=== PATIENT | female | born 1995 | race Caucasian/White ===

== ENCOUNTER 2021-02-13 10:01 | Outpatient (CLI) | payer OTHER, SELFPAY ==
--- NOTE | ~2021-02-13 | US_ITS ---
EXAMINATION: US retroperitoneal comp, US right upper quadrant DATE: 02/13/2021 10:32 INDICATION: Abdominal bloating, pain and nausea TECHNIQUE: Multiple grayscale and Doppler ultrasound images of the abdomen were obtained. COMPARISON: CT dated 12/20/2013 FINDINGS: The region of the pancreas is obscured by shadowing bowel gas. Visualized proximal inferior vena cava is normal. Liver has normal echogenicity and contour, with a smooth surface. 1.3 cm hyperechoic nodu le in the right hepatic lobe statistically most likely to represent a hemangioma. No intrahepatic marilyn iary duct dilation suspected. Portal venous flow was seen in the hepatopetal, normal direction and garber s normal Doppler waveform. The gallbladder is normal in appearance. There is no cholelithiasis. The common bile duct measures 5 mm, which is normal. Sonographic Gonzalez sign was reported as negative by the employment law attorney. There is normal renal contour and echogenicity bilaterally. The right kidney measure s 10.8 x 4.7 x 4.8 cm and the left 10.9 x 5.3 x 5.7 cm. There are no focal renal lesions identified. There is no hydronephrosis. Bladder is normal. IMPRESSION: 1. Nonspecific 1.3 cm hyperechoic nodule in the right hepatic lobe with increased echogenicity consis tent with and statistically most likely to represent a hemangioma. Otherwise unremarkable right upper quadrant ultrasound. 2. Normal bilateral kidneys with no hydronephrosis. Reviewed, dictated and finalized at location A. IMPRESSION: 1. Nonspecific 1.3 cm hyperechoic nodule in the right hepatic lobe with increas ed echogenicity consistent with and statistically most likely to represent a he mangioma. Otherwise unremarkable right upper quadrant ultrasound. 2. Normal bilateral kidneys with no hydronephrosis.
== END 2021-02-13 10:02 | disposition home or self-care (01) ==
LOC: CHSIMG 10:06
PROVIDERS: PCP Family Medicine; Visit Provider Physician Assistant
DX: R14.0 Abdominal distension (gaseous) (principal)
CPT/HCPCS: 76705; 76770

== ENCOUNTER 2021-03-12 10:23 | Outpatient (CLI) | payer OTHER, SELFPAY ==
--- NOTE | ~2021-03-12 | US_ITS ---
EXAMINATION: US pelvic complete w TV EXAM DATE: 03/12/2021 11:32 INDICATION: Abdominal pain. TECHNIQUE: Pelvic transabdominal and transvaginal sonogram was performed. There are multiple graysca le and Doppler images available for interpretation. Correlation is made to CT abdomen pelvis 4. FINDINGS: Uterus measures 7.7 x 4.5 x 5.5 cm, is anteverted and morphologically normal. Endometrial stripe measures 3 mm, within normal limits. There are nabothian cysts. There is no free pelvic flu id. Right adnexa: The ovary measures 1.8 x 0.8 x 0.8 cm and is morphologically normal. Ovarian vascular f low confirmed. Left adnexa: The ovary measures 2.7 x 1.4 x 1.5 cm and is morphologically normal. Ovarian vascular fl ow confirmed. IMPRESSION: 1. Unremarkable pelvic ultrasound exam. Reviewed, dictated and finalized at location A.
== END 2021-03-12 10:24 | disposition home or self-care (01) ==
LOC: CHSIMG 10:24
PROVIDERS: PCP Family Medicine; Visit Provider Nurse Practitioner Psychiatric/Mental Health
DX: R10.9 Unspecified abdominal pain (principal)
CPT/HCPCS: 76830; 76856

== ENCOUNTER 2022-11-06 06:58 | Emergency (ER) | payer OTHER, SELFPAY ==
--- NOTE | ~2022-11-06 | CT_ITS ---
EXAMINATION: CT abdomen pelvis wo con DATE: 11/06/2022 08:02 INDICATION: Left flank pain, pelvic pain. TECHNIQUE: Computed tomography (CT) of the abdomen and pelvis was performed without intravenous contr ast. Automated exposure control and iterative reconstruction technique were employed. Exam dose: 143 5.69 mGy-cm total exam DLP. COMPARISON: 03/12/2021 pelvic ultrasound examination, reported unremarkable 02/13/2021 right upper quadrant abdominal ultrasound 12/20/2013 CT abdomen pelvis FINDINGS: The lung bases are clear. Normal heart size. No pericardial or pleural effusion. The liver, gallbladder, bile ducts, spleen, pancreas, pancreatic duct and adrenal glands appear eladia l. There is an approximately 4.5 mm calculus at the very proximal left ureter with mild left hydronephro sis and left nephromegaly. No other urinary tract calculus or any right hydroureteronephrosis is note d. The urinary bladder, uterus and adnexal areas are unremarkable. Normal caliber of the abdominal aorta. No enlarged abdominal or pelvic lymph nodes. Normal appendix. No bowel obstruction, bowel wall thickening, pneumatosis or intraperitoneal free air . Small fat-containing umbilical hernia. Small bilateral fat-containing inguinal hernias. Included skeletal structures are unremarkable. IMPRESSION: Approximately 4.5 mm proximal left ureteral calculus Reviewed, dictated and finalized at [facility]. Reviewed, dictated and finalized at location A. SPINNER
[2022-11-06 07:00] VITALS: BP 150/90; PULSE 82; RESP 20; TEMP 36.6; O2SAT 97
[2022-11-06 07:28] LABS: Basophils Absolute Auto 0.03 K/mm3 (0.00-0.10); Basophils Percent Auto 0.3 % (0.0-1.0); Eosinophils Absolute Auto 0.54 K/mm3 (0.02-0.50); Eosinophils Percent Auto 4.6 % (1.0-6.0); Hemoglobin 12.6 g/dL (12.0-15.0); Immature Granulocyte Absolute 0.04 K/mm3 (0.00-0.00); Immature Granulocyte Percent A 0.3 % (0.0-0.0); Lymphocytes Absolute Auto 2.47 K/mm3 (1.10-4.50); Mean Corpuscular HGB Conc 33.2 g/dL (32.0-36.0); Mean Corpuscular Hemoglobin 29.3 pg (27.0-31.0); Mean Corpuscular Volume 88.4 fL (78.0-102.0); Mean Platelet Volume 11.5 fl (9.2-11.8); Monocytes Absolute Auto 0.78 K/mm3 (0.10-0.90); Monocytes Percent Auto 6.6 % (2.0-11.0); Neutrophils Absolute Auto 7.9 K/mm3 (1.7-7.2); Neutrophils Percent Auto 67.2 % (50.0-70.0); Platelet Count Result 253 K/mm3 (150-420); Red Cell Distribution Width 12.9 % (11.6-14.4); White Blood Count 11.7 K/mm3 (4.8-10.8)
[2022-11-06] MEDS: KETOROLAC (*BKC) 60 MG/2 ML VIAL IM (07:30)
[2022-11-06] MEDS: ONDANSETRON HCL ODT 4 MG TABLET PO (07:30)
[2022-11-06 07:39] LABS: Appearance Urine Turbid (Clear); Bilirubin Urine 1+ (Negative); Blood Urine 3+ (Negative); Glucose Urine UA Negative (Negative); Ketones Urine Negative (Negative); Leukocyte Esterase Ur Negative LEU/UL (Negative); Nitrate Urine Negative (Negative); Protein Urine 2+ (Negative); Specific Grav Ur >= 1.030 (1.010-1.020); Urobilinogen Urine 0.2 mg/dL (0.2-1.0); pH Urine 5.5 (5.0-8.0)
[2022-11-06 07:43] LABS: Add Urine Microscopic? YES; Bacteria Urine 2+ /hpf; Color Urine Dark Yellow (Yellow); RBC Urine >75 /hpf (0-2); Squamous Epithelial Cell Urine Few /hpf (Few); WBC Urine None seen /hpf (0-3)
[2022-11-06 07:44] LABS: Pregnancy On Board Control Positive; Urine Pregnancy Test Negative
[2022-11-06 07:45] LABS: Alanine Aminotransferase 18 U/L (14-59); Albumin Level 3.1 g/dL (3.4-5.0); Alkaline Phosphatase 81 U/L (46-116); Anion Gap 7 mmol/L (8-16); Aspartate Amino Transferase < 10 U/L (15-37); Bilirubin,Total 0.4 mg/dL (0.00-1.00); Blood Urea Nitrogen 13 mg/dL (7-18); Calcium 8.3 mg/dL (8.5-10.1); Carbon Dioxide 26 mmol/L (21-32); Chloride 105 mmol/L (98-108); Estimated CRCL calculation 106 ml/min; Estimated Glomerular Filt Rate > 60; Glucose 116 mg/dL (70-99); Osmolality Calculated 287 mOsm/kg (285-295); Potassium 3.6 mmol/L (3.5-5.1); Sodium 138 mmol/L (136-145); Total Protein 6.9 g/dL (6.4-8.2)
--- NOTE | 2022-11-06 08:12 | ED.ABDPAIN ---
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 Currently she rates her pain about 8/10 with no dysuria no hematuria, with episode of nausea with no vomiting no diarrhea constipation. MD elicited complaint: abdominal pain Pertinent past history: other ( history of endometriosis) Onset (ago): day(s) Pain Consistency: constant Location: L flank, suprapubic and pelvis Severity: moderate Pain scale (0-10): 8 Related Data Home Medications Medication Instructions Recorded Confirmed gabapentin 100 mg capsule 100 mg PO TID PRN Pain 11/06/22 11/06/22 Allergies Allergy/AdvReac Type Severity Reaction Status Date / Time No Known Allergies Allergy Unknown Verified 11/06/22 07:14 Review of Systems Review of Systems: All systems reviewed & are unremarkable except as noted in HPI and below PMFSH Past Medical History Medical History Endometriosis Social History Social History Smoking status: Never smoker Alcohol intake: current Exam Const: General: healthy appearing Nutritional Appearance: well nourished Orientation/consciousness: patient oriented x3 Limitations: no limitations HENMT: Head: normal to inspection Face/Nose/Sinus: Normal external nose present Face and sinus: normal facial exam Mouth: Yes Normal oral and palatal mucosa present Teeth and gingiva: dentition normal Eyes: Conjunctivae: conjunctivae normal Pupils: Equal, round and reactive pupils present EOM: EOMs intact bilaterally Neck: Neck: normal visual inspection, no lymphadenopathy and no meningeal signs Chest: Chest palpation & inspection: normal inspection of the chest Resp: Effort & Inspection: normal respiratory effort Auscultation: clear to auscultation bilaterally Cardio: Rate: regular rate Rhythm: regular rhythm GI: GI Palp: Yes Soft to palpation and Yes Tenderness to palpation present (GI) : General: Yes bladder normal to palpation Urinary Catheter: Urinary Catheter: patent and draining Back/Spine/Pelvis: Back: no CVA tenderness Skin: General skin exam: normal color Rashes: no rashes Wounds: no wounds Neuro: General: patient oriented x3 Cranial nerves: Yes Nystagmus not present Speech: normal speech Extrem: General: normal to inspection Psych: Mental Status: mental status grossly normal Affect: normal affect Course Course Emergency Course: labs reviewed with patient and CT scan reviewed, patient received 60mg IM Toradol and Zofran ODT which have improved her symptoms. CT scan reviewed and showed a ureteral stone about 4-1/2mm. Vital Signs Vital signs: Vital Signs Temperature 36.6 C 11/06/22 07:00 Pulse Rate 82 11/06/22 07:00 Respiratory Rate 20 11/06/22 07:00 Blood Pressure 150/90 H 11/06/22 07:00 Pulse Oximetry 97 11/06/22 07:00 Oxygen Delivery Room Air 11/06/22 07:00 Temperature 36.6 C 11/06/22 07:00 Pulse Rate 82 11/06/22 07:00 Respiratory Rate 20 11/06/22 07:00 Blood Pressure 150/90 H 11/06/22 07:00 Pulse Oximetry 97 11/06/22 07:00 Oxygen Delivery Room Air 11/06/22 07:00 MDM - Abdominal Pain Lab Data 11/06/22 07:25 11/06/22 07:25 Labs: Lab Results 11/06/22 11/06/22 11/06/22 Range/Units 07:25 07:25 07:30 WBC 11.7 H (4.8-10.8) K/mm3 RBC 4.30 (4.20-5.40) M/mm3 Hgb 12.6 (12.0-15.0) g/dL Hct 38.0 (35.0-49.0) % MCV
[2022-11-06 09:38] VITALS: BP 146/95; PULSE 72; RESP 15; O2SAT 97
== END 2022-11-06 09:52 | disposition home or self-care (01) ==
PROVIDERS: Emergency Provider Emergency Medicine; PCP Family Medicine
DX: N20.1 Calculus of ureter (principal); N80.30 Endometriosis of pelvic peritoneum, unspecified
CPT/HCPCS: 36415; 74176; 80053; 81001; 81025; 85025; 96372; 99284; A9270; J1885

== ENCOUNTER 2022-12-08 00:26 | Emergency (ER) | payer MEDICAID, SELFPAY ==
--- NOTE | ~2022-12-08 | CT_ITS ---
EXAMINATION: CT abdomen pelvis wo con DATE: 12/08/2022 01:09 INDICATION: Previous left ureteral stone. Left flank pain. History of endometriosis. TECHNIQUE: Computed tomography (CT) of the abdomen and pelvis was performed without intravenous contr ast. The dose-length product was 1268.59 mGy-cm. Automated exposure control and iterative reconstruct ion technique were employed. COMPARISON: CT dated 11/06/2022. FINDINGS: Lung bases are unremarkable. No significant pleural or pericardial effusion. Heart size nor mal. No significant vascular abnormality. There is a 4 mm nonobstructing left renal stone. No uretera l stones or hydronephrosis. Bladder is decompressed. No significant vascular abnormality. No lymphadenopathy. Normal appendix. No free air or free fluid. The liver, spleen, pancreas, adrenal glands are unremarkable. Small fat-containing umbilical hernia. No abnormal pelvic masses or fluid collections. No lymphadenopathy. No acute osseous abnormality. IMPRESSION: 1. Nonobstructing 4 mm left renal stone. Reviewed, dictated and finalized at location A. R SLICER
[2022-12-08 00:28] VITALS: BP 146/81; PULSE 104; RESP 20; TEMP 36.7; O2SAT 99
--- NOTE | 2022-12-08 00:33 | ED.BACK ---
HPI - Back Pain/Injury General Chief Complaint: Back Pain/Injury Stated Complaint: Flank Pain History of Present Illness HPI Narrative: Pt complains of sasms in left flank starting yesterday but worsening over the last 5 hrs. Pt has a history of a kidney stone on this side but this feels different. Pt denies dysuria or frequency or fever. Pt denies numbness or weakness in legs or problems with bladder or bowels, Pt denies any injury, Related Data Home Medications Medication Instructions Recorded Confirmed gabapentin 100 mg capsule 100 mg PO TID PRN Pain 11/06/22 11/06/22 Allergies Allergy/AdvReac Type Severity Reaction Status Date / Time No Known Allergies Allergy Unknown Verified 11/06/22 07:14 Review of Systems Review of Systems: All systems reviewed & are unremarkable except as noted in HPI and below PMFSH Past Medical History Medical History Endometriosis Social History Social History Smoking status: Never smoker Alcohol intake: current Exam Const: General: healthy appearing Nutritional Appearance: well nourished Orientation/consciousness: patient oriented x3 Limitations: no limitations Resp: Effort & Inspection: normal respiratory effort Auscultation: clear to auscultation bilaterally Cardio: Rate: regular rate Rhythm: regular rhythm GI: Auscultation: normal bowel sounds Back/Spine/Pelvis: Back: CVA tenderness Other: tender left flan and left low back with some paraspinous muscle spasm Skin: General skin exam: normal color Rashes: no rashes Neuro: General: patient oriented x3, moves all extremities and no focal motor deficits Extrem: General: normal to inspection and no clubbing, cyanosis or edema Psych: Mental Status: mental status grossly normal Affect: normal affect Attitude: cooperative Course Vital Signs Vital signs: Vital Signs Temperature 98.1 F 12/08/22 00:28 Pulse Rate 104 H 12/08/22 00:28 Respiratory Rate 20 12/08/22 00:28 Blood Pressure 146/81 H 12/08/22 00:28 Pulse Oximetry 99 12/08/22 00:28 Oxygen Delivery Room Air 12/08/22 00:28 Temperature 98.1 F 12/08/22 00:28 Pulse Rate 104 H 12/08/22 00:28 Respiratory Rate 20 12/08/22 00:28 Blood Pressure 146/81 H 12/08/22 00:28 Pulse Oximetry 99 12/08/22 00:28 Oxygen Delivery Room Air 12/08/22 00:28 MDM - Back Pain/Injury MDM Narrative Medical decision making narrative: wbc slightly elevated, cmp nl, ua w RBC's CT shows 4 mm stone lower pole left kidney but no ureteral stone. more likely musculoskeletal back pain. Pain controlled with morphine in ED. Will discharge home on norco and valium Lab Data 12/08/22 00:31 12/08/22 00:31 Labs: Lab Results 12/08/22 12/08/22 12/08/22 Range/Units 00:31 00:31 00:31 WBC 13.2 H (4.8-10.8) K/mm3 RBC 4.52 (4.20-5.40) M/mm3 Hgb 13.2 (12.0-15.0) g/dL Hct 40.2 (35.0-49.0) % MCV 88.9 (78.0-102.0) fL MCH 29.2 (27.0-31.0) pg MCHC 32.8 (32.0-36.0) g/dL RDW 13.2 (11.6-14.4) % Plt Count 281 (150-420) K/mm3 MPV 11.4 (9.2-11.8) fl Immature Gran % (Auto) 0.4 H (0.0-0.0) % Neut % (Auto) 67.1 (50.0-70.0) % Lymph % (Auto) 21.5 (18.0-42.0) % Holt % (Auto) 6.4 (2.0-11.0) % Eos % (Auto) 4.2 (1.0-6.0) % Baso % (Auto) 0.4 (0.0-1.0) % Lymph # (Auto) 2.84 (1.10-4.50) K/mm3 Holt # (Auto) 0.84 (0.10-0.90) K/mm3 Eos # (Auto) 0.55 H (0.02-0.50) K/mm3 Baso # (Auto) 0.05 (0.00-0.10) K/mm3 Abs Immat Gran (auto) 0.05 H (0.00-0.00) K/mm3 Absolute Neuts (auto) 8.9 H (1.7-7.2) K/mm3 Absolute Nucleated RBC 0.00 (0.00-0.00) K/mm3 Nucleated RBC % 0.0 (0-0.0) % PT 10.6 (9.50-12.10) Seconds INR 1.0 APTT 29.1 (23.90-30.70) SEC Sodium 136 (136-145) mmol/L Potassium 3.7 (3.5-5.1) m
[2022-12-08] MEDS: SODIUM CHLORIDE 0.9% IV 1,000 ML 999 ML IV CONT (00:39)
[2022-12-08 00:40] LABS: Basophils Absolute Auto 0.05 K/mm3 (0.00-0.10); Basophils Percent Auto 0.4 % (0.0-1.0); Eosinophils Absolute Auto 0.55 K/mm3 (0.02-0.50); Eosinophils Percent Auto 4.2 % (1.0-6.0); Hematocrit 40.2 % (35.0-49.0); Hemoglobin 13.2 g/dL (12.0-15.0); Immature Granulocyte Absolute 0.05 K/mm3 (0.00-0.00); Immature Granulocyte Percent A 0.4 % (0.0-0.0); Lymphocytes Absolute Auto 2.84 K/mm3 (1.10-4.50); Lymphocytes Percent Auto 21.5 % (18.0-42.0); Mean Corpuscular HGB Conc 32.8 g/dL (32.0-36.0); Mean Corpuscular Hemoglobin 29.2 pg (27.0-31.0); Mean Corpuscular Volume 88.9 fL (78.0-102.0); Mean Platelet Volume 11.4 fl (9.2-11.8); Monocytes Absolute Auto 0.84 K/mm3 (0.10-0.90); Monocytes Percent Auto 6.4 % (2.0-11.0); Neutrophils Absolute Auto 8.9 K/mm3 (1.7-7.2); Neutrophils Percent Auto 67.1 % (50.0-70.0); Platelet Count Result 281 K/mm3 (150-420); Red Blood Count 4.52 M/mm3 (4.20-5.40); Red Cell Distribution Width 13.2 % (11.6-14.4); White Blood Count 13.2 K/mm3 (4.8-10.8)
[2022-12-08] MEDS: MORPHINE SULFATE (*CRX) 4 MG/ML INJ IV PUSH ×2 (00:40→03:33)
[2022-12-08 00:41] LABS: Add Urine Microscopic? YES; Appearance Urine Slightly Cloudy (Clear); Bilirubin Urine Negative (Negative); Blood Urine 3+ (Negative); Color Urine Yellow (Yellow); Glucose Urine UA Negative (Negative); Ketones Urine Negative (Negative); Leukocyte Esterase Ur Negative LEU/UL (Negative); Nitrate Urine Negative (Negative); Protein Urine Trace (Negative); Specific Grav Ur >= 1.030 (1.010-1.020); Urobilinogen Urine 0.2 mg/dL (0.2-1.0)
[2022-12-08] MEDS: ONDANSETRON INJ 4 MG/2 ML VIAL IV PUSH (00:45)
[2022-12-08 00:49] LABS: Pregnancy On Board Control Positive; Urine Pregnancy Test Negative
[2022-12-08 00:49] LABS: Bacteria Urine 1+ /hpf; RBC Urine >75 /hpf (0-2); Squamous Epithelial Cell Urine Rare /hpf (Few); WBC Urine 0-3 /hpf (0-3)
[2022-12-08 00:52] LABS: Partial Thromboplastin Time 29.1 SEC (23.90-30.70); Prothrombin Time 10.6 Seconds (9.50-12.10)
[2022-12-08 00:56] LABS: Alanine Aminotransferase 24 U/L (14-59); Albumin Level 3.5 g/dL (3.4-5.0); Alkaline Phosphatase 93 U/L (46-116); Anion Gap 8 mmol/L (8-16); Aspartate Amino Transferase 12 U/L (15-37); Bilirubin,Total 0.2 mg/dL (0.00-1.00); Blood Urea Nitrogen 13 mg/dL (7-18); Carbon Dioxide 27 mmol/L (21-32); Chloride 101 mmol/L (98-108); Estimated CRCL calculation 116 ml/min; Estimated Glomerular Filt Rate > 60; Glucose 102 mg/dL (70-99); Osmolality Calculated 282 mOsm/kg (285-295); Potassium 3.7 mmol/L (3.5-5.1); Sodium 136 mmol/L (136-145); Total Protein 7.6 g/dL (6.4-8.2)
[2022-12-08] MEDS: MORPHINE SULFATE (*CRX) 2 MG/ML INJ IV PUSH (01:17)
--- NOTE | 2022-12-08 02:33 | PC.NURSE ---
mathematical technician calls to inform that she just got off the phone with [facility] after an hour of not having results of CT. She states that that due the acuity of the scan it has not been assigned to a radiologist yet. RN is to call CT if the results of CT are not faxed in the next hour. Update ERP and pt.
--- NOTE | 2022-12-08 03:23 | PC.NURSE ---
While preparing for discharge, pt states that her pain was starting to slowly increase and fears the pain becoming intolerable until she can pickling grader her prescription. Pt rates pain a 05/02. Reports to ERP. RN receives new orders.
[2022-12-08 03:39] VITALS: BP 150/90; PULSE 89; RESP 16; O2SAT 100
--- NOTE | 2022-12-08 17:09 | PC.NURSE ---
Pt called saying that she was seen in ER early this morning and given a Px for hydrocodone. Pt states that she went to [facility] to pickle pumper her Px and was told they were out of stock so the Px was sent back. Pt informed that we have not received any Px's in ER and when looking in pt's chart Px status says received by pharmacy. Pt encouraged to see if [facility] can send the Px to a different location that has the medication in stock. Pt states she was told they can't do that because they already sent it back . Pt informed that we cannot call the Px to a different pharmacy because narcotics cannot be called in via telephone. Pt upset, asking what she is supposed to do as she is in immense pain . Pt informed that if [facility] is not able to send the Px to a different facility her other options are to call PCP and see if they will call in a Px or return to the ER. Pt informed that if she chooses to come to ER it will be billed as an entirely new visit and there is no guarantee the ERP working today will give her the Px. Pt remains agitated, saying my doctor's office is already closed so it looks like I'm coming back in then! This is asinine! . After speaking with Pt, RN contacted pharmacy staff at [facility] to inquire about Px. Staff states that they too are unable to send Px to a different facility because it is a controlled substance. [facility] staff states that they faxed the Px back to the hospital. Unsure where it was sent as the fax number they provided is not the ER fax number.
== END 2022-12-08 03:45 | disposition home or self-care (01) ==
PROVIDERS: Emergency Provider Emergency Medicine; PCP Physician Assistant
DX: S39.012A Strain of muscle, fascia and tendon of lower back, initial encounter (principal); N20.0 Calculus of kidney; X58.XXXA Exposure to other specified factors, initial encounter
CPT/HCPCS: 36415; 74176; 80053; 81001; 81025; 85025; 85610; 85730; 96361; 96374; 96375; 96376; 99284; J2270; J2405; J7030

== ENCOUNTER 2023-01-14 09:34 | Emergency (ER) | payer OTHER, SELFPAY ==
--- NOTE | ~2023-01-14 | CT_ITS ---
EXAMINATION: CT abd pelvis lumbar wo con INDICATION: Lower back and pelvic pain TECHNIQUE: Computed tomographic images of the abdomen, pelvis, and lumbar spine were obtained after t he administration of 100 cc of Omnipaque 350 intravenous contrast. The dose-length product (DLP) was 1545.58 mGy-cm. Automated exposure control and iterative reconstruction technique were employed. COMPARISON: 12/08/2022 FINDINGS: Abdomen/pelvis: The lung bases are clear. The heart size is normal. There is a small sliding hiatal h ernia. The liver, spleen, pancreas, gallbladder, and adrenal glands are normal. There is a 5 mm stone at the left ureterovesicular junction which causes mild hydroureteronephrosis. The right kidney is u nremarkable. No pathologically enlarged abdominal or pelvic lymph nodes are identified. No free intra peritoneal gas or evidence of bowel obstruction. The appendix is normal. There is a small umbilical h ernia containing fat. Lumbar spine: There are 3 mm of retrolisthesis of L5 on S1. There is no fracture. The vertebral body heights and intervertebral disc spaces are normal. IMPRESSION: 1. 5 mm stone at the left ureterovesicular junction causing mild hydroureteronephrosis. 2. Mild lumbar spondylosis. Reviewed, dictated and finalized at location B. IMPRESSION: 1. 5 mm stone at the left ureterovesicular junction causing mild hydroureterone phrosis. 2. Mild lumbar spondylosis.
[2023-01-14 09:34] VITALS: BP 158/105; PULSE 92; RESP 20; TEMP 36.2; O2SAT 100
--- NOTE | 2023-01-14 09:44 | ED.ABDPAIN ---
HPI - Abdominal Pain General Chief Complaint: Urogenital-Female Stated Complaint: lower back pain/pelvic pain Time Seen by Provider: 01/14/23 09:41 Source: patient Mode of arrival: ambulatory Limitations: no limitations History of Present Illness HPI narrative: 27-year-old female with anxiety/depression, nonobstructing left kidney stone, endometriosis presents to the ER with a four history of -- lower back pain without any radiation. -- Abdominal pain predominantly in the suprapubic region. pain is continuous. No fever. No nausea / vomiting. No dysuria. Patient has increased frequency of micturition. She had monthly. One week ago. Her pain does not appear to be endometriosis pain which comes around the time of her period. she has had 2 prior visits for similar pain. -- Perineal and vaginal pain. -- Diarrhea since this morning. MD elicited complaint: abdominal pain Pertinent past history: other ( Endometriosis,) Onset (ago): day(s) ( Started 4 days ago.) Pain Consistency: constant Location: suprapubic and pelvis Severity: severe Quality: aching Radiation: none Migration to: no migration Exacerbating factors: nothing Relieving factors: nothing Associated symptoms: diarrhea ( Patient has had 10 episodes since this morning.) Related Data Date of Last Menstrual Period: 01/07/23 Patient : No Home Medications Medication Instructions Recorded Confirmed gabapentin 100 mg capsule 100 mg PO TID PRN Pain 11/06/22 01/14/23 Allergies Allergy/AdvReac Type Severity Reaction Status Date / Time No Known Allergies Allergy Unknown Verified 11/06/22 07:14 Review of Systems Review of Systems: All systems reviewed & are unremarkable except as noted in HPI and below Constitutional: Constitutional: Reports as per HPI and Reports no additional constitutional complaints Eyes: Eyes: Reports as per HPI and Reports no additional eye complaints ENT: Reports system reviewed and no additional complaints, except as documented and Reports as per HPI Cardiovascular: Cardiovascular: Reports as per HPI Respiratory: Respiratory: Reports as per HPI and Reports no additional respiratory complaints Gastrointestinal: Gastrointestinal: Reports as per HPI, Reports no additional gastrointestinal complaints, Reports diarrhea and Reports nausea Genitourinary: Genitourinary: Reports no additional female genitourinary complaints, Reports as per HPI, Reports nocturia and Reports pelvic pain Musculoskeletal: Musculoskeletal: Reports no additional musculoskeletal complaints, Reports as per HPI and Reports back pain Integumentary/Breasts: Skin/Breast: Reports system reviewed and no additional complaints, except as docu and Reports as per HPI Neurologic: Reports system reviewed and no additional complaints, except as documented and Reports as per HPI Psychiatric: Psychiatric: Reports no additional psychiatric complaints and Reports as per HPI Endocrine: Endocrine: Reports no additional endocrine complaints and Reports as per HPI Hematologic/Lymphatic: Hematologic/Lymphatic: Reports no additional hematologic/lymphatic complaints and Reports as per HPI Allergic/Immunologic: Allergic/Immunologic: Reports no additional allergic/immunologic complaints and Reports as per HPI COUNTS INCLUDE 234 BEDS AT THE [facility] Past Medical History Medical History (Updated 01/14/23 @ 13:01 by Trent Roberson MD) Endometriosis Kidney stone Social History Social History Smoking status: Never smoker Alcohol intake: current Substance use type: marijuana Exam Const: General: ill appearing Nutritional Appearance: obese Orientation/consciousness: patient oriented x3 Limitations: no limitations HENMT: Head: normal to inspection Ears: external ears normal Face/Nose/Sinus: Normal external nose present Face and sinus: normal facial exam Mouth: Yes Normal oral and palatal mucosa present Throat: posterior oropharynx no
[2023-01-14] MEDS: ONDANSETRON HCL ODT 4 MG TABLET PO (10:06)
[2023-01-14] MEDS: HYDROmorphone HCL INJ (*CRX) 2 MG/ML VIAL 1 MG IM (10:06)
[2023-01-14 10:07] LABS: Appearance Urine Clear (Clear); Bilirubin Urine Negative (Negative); Blood Urine 2+ (Negative); Color Urine Light Yellow (Yellow); Glucose Urine UA Negative (Negative); Ketones Urine Negative (Negative); Leukocyte Esterase Ur Negative LEU/UL (Negative); Nitrate Urine Negative (Negative); Protein Urine Negative (Negative); Specific Grav Ur 1.015 (1.010-1.020); Urobilinogen Urine 0.2 mg/dL (0.2-1.0); pH Urine 6.5 (5.0-8.0)
[2023-01-14 10:08] LABS: Pregnancy On Board Control Positive; Urine Pregnancy Test Negative
[2023-01-14 10:11] LABS: Add Urine Microscopic? YES; Bacteria Urine Trace /hpf; Squamous Epithelial Cell Urine Few /hpf (Few); WBC Urine None seen /hpf (0-3)
[2023-01-14 10:13] LABS: Basophils Absolute Auto 0.02 K/mm3 (0.00-0.10); Basophils Percent Auto 0.2 % (0.0-1.0); Eosinophils Absolute Auto 0.31 K/mm3 (0.02-0.50); Eosinophils Percent Auto 3.2 % (1.0-6.0); Hematocrit 40.1 % (35.0-49.0); Hemoglobin 13.2 g/dL (12.0-15.0); Immature Granulocyte Absolute 0.03 K/mm3 (0.00-0.00); Immature Granulocyte Percent A 0.3 % (0.0-0.0); Lymphocytes Absolute Auto 2.07 K/mm3 (1.10-4.50); Lymphocytes Percent Auto 21.1 % (18.0-42.0); Mean Corpuscular HGB Conc 32.9 g/dL (32.0-36.0); Mean Corpuscular Hemoglobin 28.9 pg (27.0-31.0); Mean Corpuscular Volume 87.9 fL (78.0-102.0); Mean Platelet Volume 11.4 fl (9.2-11.8); Monocytes Absolute Auto 0.59 K/mm3 (0.10-0.90); Neutrophils Absolute Auto 6.8 K/mm3 (1.7-7.2); Neutrophils Percent Auto 69.2 % (50.0-70.0); Platelet Count Result 297 K/mm3 (150-420); Red Blood Count 4.56 M/mm3 (4.20-5.40); Red Cell Distribution Width 13.1 % (11.6-14.4); White Blood Count 9.8 K/mm3 (4.8-10.8)
[2023-01-14 10:31] LABS: Alanine Aminotransferase 26 U/L (14-59); Albumin Level 3.6 g/dL (3.4-5.0); Alkaline Phosphatase 93 U/L (46-116); Anion Gap 12 mmol/L (8-16); Aspartate Amino Transferase 16 U/L (15-37); Bilirubin,Total 0.2 mg/dL (0.00-1.00); Blood Urea Nitrogen 15 mg/dL (7-18); Calcium 9.2 mg/dL (8.5-10.1); Carbon Dioxide 25 mmol/L (21-32); Chloride 105 mmol/L (98-108); Estimated CRCL calculation 99 ml/min; Estimated Glomerular Filt Rate > 60; Glucose 106 mg/dL (70-99); Lipase 35 U/L (16-77); Osmolality Calculated 294 mOsm/kg (285-295); Sodium 142 mmol/L (136-145); Total Protein 7.8 g/dL (6.4-8.2)
[2023-01-14 10:32] LABS: Troponin I < 4.0 ng/L (0.00-60.4)
[2023-01-14 10:34] LABS: Lactic Acid Reflex 0.7 mmol/L (0.4-2.0)
--- NOTE | 2023-01-14 11:01 | PC.NURSE ---
pt resting per cot. able to lay still but continues to state pain in abdomin and vagina continues. states lower back pain has improved. call nixon in reach
[2023-01-14] MEDS: SODIUM CHLORIDE 0.9% IV 1,000 ML 999 ML IV CONT (12:09)
[2023-01-14] MEDS: KETOROLAC 30 MG/ML VIAL (*BKC) IV PUSH (12:10)
[2023-01-14] MEDS: TAMSULOSIN HCL 0.4 MG CAPSULE PO (12:24)
[2023-01-14 13:10] VITALS: BP 138/97; PULSE 82; RESP 16; TEMP 36.9; O2SAT 100
== END 2023-01-14 13:22 | disposition home or self-care (01) ==
PROVIDERS: Emergency Provider Internal Medicine Critical Care Medicine
DX: N13.2 Hydronephrosis with renal and ureteral calculous obstruction (principal); R10.9 Unspecified abdominal pain; N80.9 Endometriosis, unspecified
CPT/HCPCS: 36415; 72131; 74176; 80053; 81001; 81025; 83605; 83690; 84484; 85025; 85610; 96361; 96372; 96374; 99284; A9270; J1170; J1885; J7030